=== PATIENT | female | born 1995 | race Caucasian/White ===

== ENCOUNTER 2016-09-13 21:22 | Emergency (ER) | payer BC ==
[2016-09-13 21:30] VITALS: BMI 20.8
[2016-09-13 21:32] VITALS: BP 114/74; PULSE 81; RESP 16; TEMP 98.5; O2SAT 99
--- NOTE | 2016-09-13 22:02 | ED PDOC ---
Arrival/HPI <Bassem Leslie A - Last Filed: 09/13/16 22:13> <Walt Nichole - Last Filed: 09/14/16 21:23> - General Chief Complaint: Female Genitourinary Time Seen by Provider: 09/13/16 21:35 - History of Present Illness Narrative History of Present Illness (Text): 09/13/16 22:00 20yo female with vaginal itching for the last few weeks. Pt state area is erythematous and itchy. States she has skin culture done outpatient and it showed a mix of fungal and staph infection. Pt states she is already applying an antifungal cream with some relief. Denies any bleeding or dc. Asked for a female examiner. Bassem VEGA examined pt. (Walt Nichole) Past Medical History - Provider Review Nursing Documentation Reviewed: Yes - Infectious Disease Hx of Infectious Diseases: None - Psychiatric Hx Substance Use: No - Anesthesia Hx Anesthesia: No Hx Anesthesia Reactions: No Hx Malignant Hyperthermia: No <Walt Nichole - Last Filed: 09/14/16 21:23> Family/Social History Family/Social History: Unknown Family HX Smoking Status: Never Smoked Hx Alcohol Use: No Hx Substance Use: No <Walt Nichole - Last Filed: 09/14/16 21:23> Allergies/Home Meds <Bassem Leslie A - Last Filed: 09/13/16 22:13> <Walt Nichole - Last Filed: 09/14/16 21:23> Allergies/Adverse Reactions: Allergies No Known Allergies Allergy (Verified 09/13/16 21:29) Physical Exam Vital Signs Reviewed: Yes Temperature: Afebrile Blood Pressure: Normal Pulse: Regular Respiratory Rate: Normal Appearance: Positive for: Well-Appearing, Non-Toxic, Comfortable Pain Distress: None Mental Status: Positive for: Alert and Oriented X 3 - Systems Exam Head: Present: Atraumatic, Normocephalic Pupils: Present: PERRL Extroacular Muscles: Present: EOMI Conjunctiva: Present: Normal Mouth: Present: Moist Mucous Membranes Neck: Present: Normal Range of Motion Respiratory/Chest: Present: Clear to Auscultation, Good Air Exchange. No: Respiratory Distress, Accessory Muscle Use Cardiovascular: Present: Regular Rate and Rhythm, Normal S1, S2. No: Murmurs Abdomen: Present: Normal Bowel Sounds. No: Tenderness, Distention, Peritoneal Signs Genitourinary/Pelvic Exam: Present: Other (Raise erythematous patch noted on the perineum and the vulva area. Scattered erythematous flat papules noted on the inner proximal thigh. No TTP. No crepitus.) Back: Present: Normal Inspection Upper Extremity: Present: Normal Inspection. No: Cyanosis, Edema Lower Extremity: Present: Normal Inspection. No: Edema Neurological: Present: GCS=15, CN II-XII Intact, Speech Normal Skin: Present: Warm, Dry, Normal Color, Erythematous (Erythematous patch noted on the perineum and the vulva area). No: Rashes Psychiatric: Present: Alert, Oriented x 3, Normal Insight, Normal Concentration <Bassem Leslie - Last Filed: 09/13/16 22:13> Vital Signs Reviewed: Yes Temperature: Afebrile Pain Distress: None Mental Status: Positive for: Alert and Oriented X 3 <Walt Nichole - Last Filed: 09/14/16 21:23> - Physical Exam Narrative Physical Exam (Text): - Review of Systems Constitutional: Normal. absent: Fatigue, Weight Change, Fevers Eyes: Normal ENT: denies sore throat, denies tristhmus Respiratory: Normal. absent: SOB, Cough, Sputum Cardiovascular: absent: Chest Pain, Palpitations, Syncope Gastrointestinal: Normal. absent: Abdominal Pain, Diarrhea, Nausea, Vomiting Genitourinary: Vaginal redness and itching. absent: Dysuria, Frequency, Hematuria, vaginal bleeding Musculoskeletal: Normal. absent: Arthralgias, Back Pain, Neck Pain Skin: no rashes, no erythema Neurological: absent: Focal Weakness Endocrine: Normal Hemo/Lymphatic: Normal Psychiatric: No suicidal or homicidal ideations (Walt Nichole) Vital Signs Temp Pulse Resp BP Pulse Ox 09/13/16 21:30 98.5 F 81 16 114/74 99 Medical Decision Making <Bassem Leslie A - Last Filed: 09/13/16 22:13> <Walt Nichole - Last Filed: 09/14/16 21:23> ED Course and Treatment: 09/13/16 22:03 Patient examined by PA per her request. Will be discharged home with oral antibiotics, and she was encouraged to follow up with a food checker Pt states she understands to return to the ER right away for new or worsening symptoms or for inability to f/u with PMD or specialist as instructed. Patient states that she fully agrees with and understands discharge instructions. States that she agrees with the plan and disposition. Verbalized and repeated discharge instructions and plan. I have given the patient opportunity to ask any additional questions. (Walt Nichole) Disposition/Present on Arrival <Bassem Leslie - Last Filed: 09/13/16 22:13> - Present on Arrival Any Indicators Present on Arrival: No History of DVT/PE: No History of Uncontrolled Diabetes: No Urinary Catheter: No History of Decub. Ulcer: No History Surgical Site Infection Following: None - Disposition Have Diagnosis and Disposition been Completed?: Yes Disposition Time: 22:04 Patient Plan: Discharge <Walt Nichole - Last Filed: 09/14/16 21:23> - Disposition Diagnosis: Rash Disposition: HOME/ ROUTINE Condition: STABLE Discharge Instructions (ExitCare): Vaginitis (ED) Additional Instructions: PLEASE RETURN TO THE EMERGENCY DEPARTMENT FOR NEW OR WORSENING SYMPTOMS. RETURN RIGHT AWAY IF YOU CANNOT FOLLOW UP WITH YOUR PRIMARY CARE DOCTOR, CLINIC, OR SPECIALIST IN 1-2 DAYS. Prescriptions: Cephalexin [Keflex] 500 mg PO TID #21 capsule Referrals: Erica Valdes MD [Primary Care Provider] - Follow up with primary Lynn Huston MD [Staff Provider] - Follow up with primary
== END 2016-09-13 23:16 | disposition home or self-care (01) ==
LOC: ED 21:22
DX: R21 Rash and other nonspecific skin eruption (principal)